=== PATIENT | female | born 1930 | race African-American/Black ===

== ENCOUNTER 2017-11-06 12:58 | Emergency (ER) | payer OTHER ==
[~2017-11-06] VITALS: Ht 162.6 cm; Wt 46.3 kg
[2017-11-06] MEDS ORDERED: ZOLOFT50 MG (13:38)
[2017-11-06] MEDS ORDERED: GLIPIZIDE5 MG (13:39)
[2017-11-06] MEDS ORDERED: LISINOPRIL20 MG (13:39)
[2017-11-06] MEDS ORDERED: DOXAZOSIN MESYLA4 MG (13:40)
== END 2017-11-06 17:50 | disposition home or self-care (01) ==
LOC: ER 12:58
DX: M25.572 Pain in left ankle and joints of left foot (principal)